=== PATIENT | male | born 2000 | race Caucasian/White ===

== ENCOUNTER 2022-01-24 19:23 | Emergency (ER) | payer BC ==
[~2022-01-24] VITALS: Ht 182.9 cm; Wt 103.0 kg
[2022-01-24 20:05] VITALS: BP 144/90
--- NOTE | 2022-01-24 20:08 | NUR ---
TO LOBBY A/W BED AMBULATORY
--- NOTE | 2022-01-25 00:48 | NUR ---
PT AMBULATED TO BED #5
--- NOTE | 2022-01-25 00:50 | NUR ---
Patient being evaluated by physician at bedside.
[2022-01-25] MEDS ORDERED: KETOROLAC 30 MG/ML VIAL IM ONE (00:55)
--- NOTE | 2022-01-25 01:14 | NUR ---
PT BACK FROM CT
--- NOTE | 2022-01-25 01:25 | NUR ---
RECEIVED IN BED 5 WITH C/O RT TESTICULAR PAIN STARTED LAST NIGHT ,CHEST PAIN ON AND OFF FOR 3 MONTHS, LOWER ABD PAIN LAST NIGHT, WHEN HE EAT WITH GEN ABD PAIN ESPECIALLY WHEN HE IS FULL, NO BM FOR A WEEK
[2022-01-25 01:26] LABS: APPEARANCE,URINE CLEAR (CLEAR); BILIRUBIN,URINE NEGATIVE (NEGATIVE); BLOOD, URINE NEGATIVE (NEGATIVE); COLOR,URINE YELLOW (YELLOW); LEUKOCYTE ESTERASE ,URINE NEGATIVE (NEGATIVE); NITRITE, URINE NEGATIVE (NEGATIVE); PH,URINE 6.5 (5.0-9.0); UGLUCOSE NEGATIVE (NEGATIVE)
[2022-01-25 01:33] LABS: BASOPHILS # (AUTO) 0.1 K/uL (0.00-0.22); BASOPHILS % (AUTO) 0.6 % (0.0-2.0); EOSINOPHILS # (AUTO) 0.2 K/uL (0-0.4); EOSINOPHILS % (AUTO) 2.1 % (0.0-4.0); HEMATOCRIT 45.4 % (36-52); HEMOGLOBIN 15.5 g/dL (12.0-18.0); LYMPHOCYTES # (AUTO) 4.3 K/uL (2.0-11.5); LYMPHOCYTES % (AUTO) 42.9 % (20.5-51.1); MEAN CORPUSCULAR HEMOGLOBIN 30 pg (27-31); MEAN CORPUSCULAR HGB CONC 34 g/dL (33-37); MEAN CORPUSCULAR VOLUME 88.2 fL (80-94); MONOCYTES # (AUTO) 0.9 K/uL (0.8-1.0); NEUTROPHILS # (AUTO) 4.5 K/uL (1.8-7.7); NEUTROPHILS % (AUTO) 45.4 % (42.2-75.2); PLATELET COUNT (AUTO) 305 K/uL (140-450); RED BLOOD CELL COUNT(AUTO) 5.15 MIL/uL (4.20-6.10); RED CELL DISTRIBUTION WIDTH 12.7 % (11.6-13.7)
[2022-01-25 01:35] LABS: ALBUMIN 4.5 g/dL (3.4-5.0); ANION GAP 14.1 (8-16); CREATININE 0.8 mg/dL (0.6-1.3); POTASSIUM 4.1 mmol/L (3.5-5.1); TOTAL BILIRUBIN 0.5 mg/dL (0.0-1.0)
[2022-01-25] MEDS ORDERED: BEN10 PO (02:59)
[2022-01-25] MEDS ORDERED: MIRABULK PO (02:59)
[2022-01-25 03:15] VITALS: BP 141/74
--- NOTE | 2022-01-25 03:15 | NUR ---
Patient discharged with v/s stable. Written and verbal after care instructions given and explained. Patient alert, oriented and verbalized understanding of instructions. Ambulatory with steady gait. All questions addressed prior to discharge. ID band removed. Patient advised to follow up with PMD. Rx of BENTYL, MIRALAX given. Patient educated on indication of medication including possible reaction and side effects. Opportunity to ask questions provided and answered.
== END 2022-01-25 03:15 | disposition home or self-care (01) ==
LOC: MED 19:23
DX: R10.30 Lower abdominal pain, unspecified (principal); F17.290 Nicotine dependence, other tobacco product, uncomplicated
CPT/HCPCS: 36415; 74176; 76870; 80053; 81003; 85025; 96372; 99285; J1885; Q0092